=== PATIENT | female | born 1940 | race Caucasian/White ===

== ENCOUNTER → 2018-04-21 11:26 | Outpatient (CLI) | payer OTHER, SELFPAY ==
--- NOTE | 2018-04-21 | DI.MRI.S_ITS ---
PROCEDURE: MR HEAD/BRAIN WO CON INDICATIONS: MALIGNANT NEOPLASM OF BRAIN TECHNIQUE: Non-contrast axial T1 spin echo, axial T2 fast spin echo, sagittal and axial FLAIR, coronal T2 fast spin echo, axial gradient echo, axial diffusion and ADC through the brain. COMPARISON: Outside Facility, RG, MRI HEAD W/WO CONTRAST, 02/19/2018, 14:32. Outside Facility, RG, MRI HEAD W/WO CONTRAST, 12/25/2017, 16:19. [facility], CT, HEAD WITHOUT CONTRAST, 10/12/2017, 14:54. FINDINGS: Image quality: The study is limited by the patient's inability to be properly positioned for this examination and possibly proper standard coils could not be used. CSF spaces: Ventricles appear symmetric in size and shape. Basal cisterns are patent. Brain: Postoperative changes are seen, with volume loss and encephalomalacia involving the left frontal lobe. There is a mild degree of extra-axial fluid seen anterior to the brain parenchyma, with a maximum axial extent of 19 x 13 mm, as on series 17 image 12. This is improved compared to the prior outside study. There is mild hemosiderin deposition seen within the resection bed, as on series 19 image 13. No acute intracranial bleeds. There is cerebral volume loss for age. There are periventricular and deep white matter chronic small vessel ischemic changes. Brainstem appears normal. Diffusion-weighted images show no acute ischemic insults. Normal intravascular flow voids are present. Skull and face: Left frontal craniotomy changes are seen. Calvarial bone marrow is normal in signal. Orbits are normal. Sinuses: Sinuses and mastoids are clear. IMPRESSION: Expected postoperative change of the anterior aspect of the left frontal lobe, with a decreased amount of extra-axial fluid compared to the outside study performed on 02/19/18. Dictated by: Omid Hough M.D. on 04/21/2018 at 13:17 Approved by: Omid Hough M.D. on 04/21/2018 at 13:22
== END ==
PROVIDERS: Family Provider Family Medicine; PCP Family Medicine; Visit Provider Neurological Surgery
DX: C71.9 Malignant neoplasm of brain, unspecified (principal)
CPT/HCPCS: 70551